=== PATIENT | male | born 1970 | race Caucasian/White ===

== ENCOUNTER → 2024-01-13 11:59 | Outpatient (REF) | payer BC, SELFPAY | LOC: RAD 11:59 | PROVIDERS: ATTENDING PHYSICIAN Family Medicine | DX: M25.551 Pain in right hip (principal); M79.604 Pain in right leg | CPT/HCPCS: 72110; 73523 ==

== ENCOUNTER 2025-02-23 06:22 | Day surgery (SDC) | payer BC, SELFPAY | END 2025-02-23 14:04 | disposition home or self-care (01) | LOC: GI 06:22 | PROVIDERS: ATTENDING PHYSICIAN Surgery | DX: Z12.11 Encounter for screening for malignant neoplasm of colon (principal); Z86.0100 Personal history of colon polyps, unspecified | CPT/HCPCS: G0105 ==